=== PATIENT | female | born 1995 | race Caucasian/White ===

== ENCOUNTER 2022-10-17 12:50 | Outpatient (CLI) | payer BC, SELFPAY ==
--- NOTE | 2022-10-17 13:00 | CRLHL7_ITS ---
For Patients: As a result of the Cures Act, medical imaging exams and procedure reports are released immediately into your electronic medical record. You may view this report before your referring provider. If you have questions, please contact your health care provider. INDICATION: First trimester scan, establish dates. COMPARISON: None. TECHNIQUE: Real-time hopkins-scale imaging of the pelvis was performed. FINDINGS: Sonographic imaging demonstrates a single living intrauterine gestation. The embryo demonstrates a regular cardiac rate measuring 120 beats per minute. The embryo`s crown-rump length measurement of 0.8 cm corresponds to a gestational age of 6 weeks 5 days with a sonographic due date of 06/07/2023. There is a normal-appearing yolk sac. There are no gross abnormalities noted within the embryo at this early state of development. The gestational sac has a normal appearance. There is a 1.1 x 1.0 x 1.0 cm inferior perigestational hemorrhage. The amount of fluid within the sac appears appropriate for gestational age. The cervix is closed. The myometrium appears normal. The ovaries are of normal size. Left para ovarian cyst measuring 1.6 x 1.0 x 1.0 cm. There are no suspicious fluid collections noted in the cul-de-sac. IMPRESSION: Single living intrauterine with sonographic gestational age 6 weeks 3 days and sonographic due date of 06/07/2023. Inferior subchorionic hemorrhage measuring 1.1 cm. Dictated by Evin Feldman MD @ 10/18/2022 9:55:40 AM (Electronically Signed)
== END 2022-10-17 12:51 | disposition home or self-care (01) ==
PROVIDERS: Visit Provider Registered Nurse
DX: Z34.91 Encounter for supervision of normal pregnancy, unspecified, first trimester (principal); Z3A.01 Less than 8 weeks gestation of pregnancy
CPT/HCPCS: 0353U; 76817; 86703; 86803; 86850; 86900; 86901; 87340; 87491; 87591

== ENCOUNTER 2022-10-17 13:54 | Outpatient (CLI) | payer BC, SELFPAY ==
[2022-10-17 16:51] LABS: Chlamydia DNA Amplified* NOT DETECTED (No Detected); GC DNA Amplified* NOT DETECTED (No Detected)
== END 2022-10-17 13:55 | disposition home or self-care (01) ==
PROVIDERS: Visit Provider Registered Nurse
DX: Z34.91 Encounter for supervision of normal pregnancy, unspecified, first trimester (principal)
CPT/HCPCS: 0353U; 86592; 86703; 86762; 86787; 86803; 86850; 86900; 86901; 87086; 87340

== ENCOUNTER 2023-01-18 12:08 | Outpatient (CLI) | payer BC, SELFPAY ==
--- NOTE | 2023-01-18 12:15 | CRLHL7_ITS ---
For Patients: As a result of the Century Cures Act, medical imaging exams and procedure reports are released immediately into your electronic medical record. You may view this report before your referring provider. If you have questions, please contact your health care provider. INDICATION: Evaluate anatomy. COMPARISON: 10/17/2022 TECHNIQUE: Real time hopkins scale imaging of the fetus was performed as well as color Doppler analysis of the umbilical vessels. FINDINGS: Sonographic imaging demonstrates a single living intrauterine gestation. Fetus demonstrates a regular cardiac rate of 152 beats per minute. Fetus has a variable position. The placenta lies posteriorly without evidence of placenta previa. The edge of the placenta is located 3.5 cm from the internal cervical os. Amniotic fluid volume appears normal. Single deepest vertical pocket: 3.4 cm. The cervix is closed and measures 4.2 cm in length. The composite ultrasound gestational age is calculated at 20 weeks 3 days with an estimated sonographic due date of 06/04/2023. The estimated weight is 344 grams which lies at the 62nd %. The following biometric measurements were obtained: Biparietal diameter: 5.0 cm/21 weeks 0 days 85th% Head circumference: 18.4 cm/20 weeks 5 days 76th% Abdominal circumference: 14.7 cm/20 weeks 0 days 44th% Femur length: 3.3 cm/20 weeks 3 days 59th% The HC/AC ratio measures: 1.25 range (1.07-1.25) On anatomic survey, there is a normal appearance of the cerebral ventricles, cavum septi pellucidi, cisterna magna and cerebellum. The nose, lips, and facial profile appear normal. The cervical, thoracic and lumbar spine are well visualized and appear normal. There is a normal four-chamber heart view and the left and right ventricular outflow tracts appear normal. The diaphragm and stomach appear normal. The kidneys and bladder also appear normal. There is a normal three-vessel cord and cord insertion site. The four extremities appear normal. IMPRESSION: Normal OB ultrasound exam with concordance of clinical and sonographic dating. No intrinsic abnormalities noted on anatomic survey. Dictated by Evin Feldman MD @ 01/18/2023 1:46:18 PM (Electronically Signed)
== END 2023-01-18 12:09 | disposition home or self-care (01) ==
LOC: US 12:09
PROVIDERS: Visit Provider Obstetrics & Gynecology
DX: Z34.92 Encounter for supervision of normal pregnancy, unspecified, second trimester (principal); Z3A.20 20 weeks gestation of pregnancy
CPT/HCPCS: 76805

== ENCOUNTER 2023-03-15 16:15 | Outpatient (CLI) | payer BC, SELFPAY | END 2023-03-15 16:16 | disposition home or self-care (01) | LOC: NFLDREF 16:17 | PROVIDERS: Visit Provider Obstetrics & Gynecology | DX: Z34.93 Encounter for supervision of normal pregnancy, unspecified, third trimester (principal); Z3A.28 28 weeks gestation of pregnancy | CPT/HCPCS: 86592 ==

== ENCOUNTER 2023-03-22 07:59 | Outpatient (CLI) | payer BC, SELFPAY | END 2023-03-22 08:00 | disposition home or self-care (01) | LOC: NFLDREF 03-23 13:06 | PROVIDERS: Visit Provider Obstetrics & Gynecology | DX: R73.09 Other abnormal glucose (principal) | CPT/HCPCS: 82951; 82952 ==

== ENCOUNTER 2023-05-16 13:07 | Outpatient (CLI) | payer BC, SELFPAY ==
--- NOTE | 2023-05-16 13:15 | CRLHL7_ITS ---
For Patients: As a result of the Century Cures Act, medical imaging exams and procedure reports are released immediately into your electronic medical record. You may view this report before your referring provider. If you have questions, please contact your health care provider. INDICATION: Follow-up growth. COMPARISON: OB ultrasound 01/18/2023. TECHNIQUE: Ultrasound OB pelvis with real time hopkins scale imaging and color Doppler analysis. FINDINGS: Sonographic imaging demonstrates a single living intrauterine gestation. The fetus has a regular cardiac rate of 134 beats per minute. The fetus has a cephalic orientation. The placenta lies posteriorly without evidence of placenta previa. Amniotic fluid volume appears normal with single deepest pocket measuring 6.2 cm. The composite ultrasound gestational age is calculated at 38 weeks 2 days with an estimated sonographic due date of 05/28/2023. The estimated weight is 3449 grams which lies at the 88th percentile. The following biometric measurements were obtained: Biparietal diameter: 9.19 cm (37 weeks 2 days) (76th percentile) Head circumference: 34.75 cm (40 weeks 2 days) (93rd percentile) Abdominal circumference: 34.88 cm (38 weeks 5 days) (96th percentile) Femur length: 7.15 cm (36 weeks 4 days) (42nd percentile) The HC/AC ratio measures: 1.00 (range 0.89-1.06) IMPRESSION: 1. Single living intrauterine gestation in cephalic position with heart rate 134 beats per minute. 2. Ultrasound gestational age 38 weeks 2 days with sonographic due date 05/28/2023. The clinical gestational age is 36 weeks 6 days. 3. Estimated weight is 88th percentile. Dictated by Emmy Rader MD @ 05/16/2023 10:39:23 PM (Electronically Signed)
== END 2023-05-16 13:08 | disposition home or self-care (01) ==
LOC: US 13:07
PROVIDERS: Visit Provider Obstetrics & Gynecology
DX: Z34.93 Encounter for supervision of normal pregnancy, unspecified, third trimester (principal); Z3A.38 38 weeks gestation of pregnancy
CPT/HCPCS: 76816; 87081; 87653

== ENCOUNTER 2023-05-30 07:46 | Inpatient (IN) | payer BC, SELFPAY ==
[2023-05-30] VITALS (74 sets, daily range): BP systolic 89–136; BP diastolic 51–85; PULSE 72–119; RESP 16; TEMP 36.6–37.4; O2SAT 94–100; BMI 34.7
[2023-05-30] MEDS: OXYTOCIN 30 unit/500 ML in NS 30 UNIT/500 ML BAG IVPB (08:30)
[2023-05-30] MEDS: LACTATED RINGERS 1000 ML 1,000 ML 124 ML IV (08:44)
[2023-05-30 09:10] LABS: Basophils Absolute Auto 0.01 K/uL (0.00-0.30); Basophils Percent Auto 0.1 % (0.0-3.0); Eosinophils Absolute Auto 0.05 K/uL (0.00-0.50); Eosinophils Percent Auto 0.5 % (0.0-7.0); Hematocrit 32.8 % (33.0-51.0); Hemoglobin* 10.3 gm/dL (12.0-16.0); Immature Granulocytes Abs Auto 0.13 K/uL (0.00-0.30); Immature Granulocytes Pct Auto 1.4 %; Lymphocytes Absolute Auto 2.02 K/uL (0.90-2.90); Lymphocytes Percent Auto 21.8 % (20-44); Mean Corpuscular HGB Conc 31 gm/dL (32-36); Mean Corpuscular Hemoglobin 27 pg (26-34); Mean Corpuscular Volume 87 fL (80-100); Monocytes Percent Auto 5.9 % (0.0-11.0); Neutrophils Absolute Auto 6.52 K/uL (1.7-7.0); Neutrophils Percent Auto 70.3 % (42.0-72.0); Platelet Count* 216 K/uL (140-440); RDW Coefficient of Variation % 14.5 % (11.5-15.5); Red Blood Count 3.77 m/uL (4.00-5.20); White Blood Count* 9.28 K/uL (4.50-11.00)
[2023-05-30 09:12] LABS: Slide Review Reflex No
--- NOTE | 2023-05-30 13:21 | P.LDBA_ITS ---
Subjective History of Present Illness Time Seen by Provider: 08:00 Date Seen: 05/30/23 Narrative: Justa is being admitted to Labor and Delivery for elective induction of labor. She is a 28 year old at 39 weeks 0 days gestation. Her full history and ph ysical was dictated by Dr. Fallon on 05/16/2023. Please see this for details. Verbal consent obtained to perform AROM. Specific Issues/Plans : Mao. Daughter: Serjio. Baby: [place] Gender 1. H/O PP hemorrhage in 08/2021 which required 2 units PRBC, 1 unit FFP and 1u cryoprecipitate. 2. H/O generalized anxiety disorder. Not requiring medication. 3. H/O LGA infant: 8#12oz * Requested an US for EFW at 36 weeks 05/16/2023: Vtx, SDP 6.2cm. EFW: 88%. BPD 76%, HC 93%, AC 96%, FL 42%. * Would like an IOL at 39w0d - 39w6d: scheduled on 05/30/2023 at 39w0d. COVID: Not vaccinated. Recommended. TDAP: 04/02/23 RSV: 05/16/2023 GBS (-): 05/16/23. H&P by NDP on 05/16/23 OB - Problem Based A/P Additional Plan (1) Elective induction of labor planned: Start date: 05/30/23 Start time: 08:00 Status: Acute Plan: 1. Artificial rupture membranes took place a few minutes after 8:00 a.m. clear fluid 2. GBS negative 3. Patient is planning an epidural for labor analgesia. 4. Blood type: AB positive OB Exam Physical Exam Vital signs: Temp Pulse Resp BP Pulse Ox 98.7 F 102 H 16 113/77 97 05/30/23 12:55 05/30/23 12:55 05/30/23 12:55 05/30/23 12:55 05/30/23 09:02 Narrative: GENERAL APPEARANCE: Pleasant, , well-groomed woman in no acute distress. VITAL SIGNS: as noted in nursing notes HEAD: Normocephalic, atraumatic. THYROID: no masses, nodularity, tenderness or enlargement. LUNGS: Clear to auscultation bilaterally without wheezes, rales or rhonchi. HEART: Regular rate and rhythm with normal S1 and S2. No gallop, rub or murmur. ABDOMEN: Gravid. Soft, nontender, nondistended, with normal bowels sounds throughout. EFM: Baseline 120-130 beats per minute, accelerations: Present. Decelerations: Absent. Reactive. Category 1. TOCO: Rare contractions. PRESENTATION: Vertex by Paxton's maneuvers and sterile vaginal exam. SVE: 3.5 cm/ 70 %/ 0/soft/anterior. Vivas score: 10. AROM performed, clear fluid. EXTREMITIES: No cyanosis, clubbing, or edema. [+/-] varicosities. NEUROLOGIC: Normal gait and balance. Normal deep tendon reflexes at bilateral patella 2+/2, equal without clonus. PSYCHIATRIC: alert and oriented x3. Normal speech pattern, eye contact and affect. SKIN: Warm, dry, and well perfused. Good turgor. No lesions, nodules or rashes.
[2023-05-30] MEDS: ROPIVACAINE 0.2% 100 ml 100 ML 12 MG EPIDURAL (14:52)
[2023-05-30] MEDS: LIDOCAINE 2% (PF) 5 ML VIAL EPIDURAL (14:52)
[2023-05-30] MEDS: PHENYLEPHRINE 100 MCG/ML SYRINGE IVP ×2 (15:03→15:46)
[2023-05-30] MEDS: LACTATED RINGERS 1000 ML 1,000 ML 120 ML IV (15:43)
--- NOTE | 2023-05-30 15:45 | P.ANBPRC_ITS ---
[facility] Medical History atony of uterus with hemorrhage (09/06/21) ?O72.1 - Other immediate hemorrhage (ICD-10) Normal spontaneous vaginal delivery (09/06/21) ?O80 - Encounter for full-term uncomplicated delivery (ICD-10) Gastric ulcer with obstruction (02/07/10) ?K25.9 - Gastric ulcer, unspecified as acute or chronic, without hemorrhage or perforation (ICD-10) Gastric ulcer (02/07/10) ?K25.9 - Gastric ulcer, unspecified as acute or chronic, without hemorrhage or perforation (ICD-10) Encounter for blood transfusion (09/06/21) ?Z51.89 - Encounter for other specified aftercare (ICD-10) Social History What is your current living situation?: I presently have a place to live Problems where you live: no known problems In the past 12 months, utilities in danger of being shut off: no In past 12 months, lack of transportation kept you from medical appts, meetings, work, or getting things needed for daily living: no In the past 12 mos, have been you worried that your food would run out before you had money to buy more?: never true In the past 12 mos, the food you bought just didn't last and you didn't have money to buy more?: never true Smoking Status: Never smoker How often does anyone, including family, friends and others, physically hurt you : never How often does anyone, including family, friends and others, insult or talk down to you: never How often does anyone, including family, friends and others, threaten you with harm: never How often does anyone, including family, friends and others, scream or curse at you: never Little interest or pleasure in doing things: not at all Feeling down, depressed, or hopeless: not at all Meds Home Medications and Allergies Home Medications Medication Instructions Recorded Confirmed Type docosahexaenoic acid 200 mg mg PO 10/17/22 05/23/23 History capsule ( DHA) omeprazole 40 mg capsule,delayed 40 mg PO QDAY 04/02/23 05/30/23 History release Allergies Allergy/AdvReac Type Severity Reaction Status Date / Time No Known Allergies Allergy Unknown Verified 05/23/23 14:42 Results Labs Labs: Laboratory Results - last 24 hr 05/30/23 08:30 WBC 9.28 RBC 3.77 L Hgb 10.3 L Hct 32.8 L MCV 87 MCH 27 MCHC 31 L RDW Coeff of Casi 14.5 Plt Count 216 Neut % (Auto) 70.3 Lymph % (Auto) 21.8 [place] % (Auto) 5.9 Eos % (Auto) 0.5 Baso % (Auto) 0.1 Neut # (Auto) 6.52 Lymph # (Auto) 2.02 [place] # (Auto) 0.50 Eos # (Auto) 0.05 Baso # (Auto) 0.01 Abs Immat Gran (auto) 0.13 Imm/Tot Granulo (auto) 1.4 Blood Type AB Positive Antibody Screen NEGATIVE Vital Signs Vital Signs: Last Vital Signs Temp 98.7 F 05/30/23 14:35 Pulse 85 05/30/23 15:44 Resp 16 05/30/23 14:35 BP 103/57 L 05/30/23 15:44 Pulse Ox 94 05/30/23 15:27 Weight: 97.692 kg Height: 167.64 cm Anesthesia Procedures Epidural Insertion Patient Location: OB Start Time: 13:30 Stop Time: 14:00 Start Date: 05/30/23 Stop Date: 05/30/23 Reason for Block: procedure for pain Patient Position: sitting Performed By: Nura Mcdowell Preanesthetic Checklist: IV checked, risks and benefits discussed, monitors and equipment checked, pre-op evaluation, timeout performed and anesthesia consent Prep: chlorhexidine gluconate Monitoring: blood pressure monitoring, continuous pulse oximetry and heart rate Approach: midline Vertebral Space: lumbar (1-5) Epidural Technique: MARYCRUZ saline Needle Type: Tuohy needle Injection Technique: continuous catheter Needle gauge: 17 Needle Length (cm): 10 cm Needle Insertion Depth (cm): 7 Catheter Gauge: 19 Catheter Type: multi-orifice Catheter at skin depth (cm): 13 Test Dose Result: negative and lidocaine 1.5% with epinephrine 1 to 200,000
[2023-05-30] MEDS: ONDANSETRON 2 MG/ML inj 4 MG IV (16:01)
[2023-05-30] MEDS: TRANEXAMIC ACID 100 MG/ML INJ 1000 MG IV (18:38)
--- NOTE | 2023-05-30 20:05 | W.PM.VAGD1_ITS ---
Procedure Delivery date: 05/30/23 Procedure Done: Global Procedure Details: Megan is a 28 year-old G 2 P 100 1 now to admitted on 05/30/2023 at 7:30 a.m. at 30 Weeks, 0 Days gestation for elective induction of labor. AROM occurred at 8:06 a.m. on 05/30/2023 with clear fluid. Labor Analgesia: Epidural Pitocin: Yes Labor onset: 05/30/2023 at 2:58 p.m.. Complete: 05/30/2023 at 6:33 p.m.. Pushin05/30/2023 at 7:35 p.m.. heart tones during second stage were: Moderate variability with decelerations to the 80s with contractions with slow return to baseline when the vertex was . At 7:41 p.m. a viable male delivered in vertex direct OA presentation o andrade first-degree periurethral and first-degree perineal lacerations via normal spontaneous vaginal delivery. The infant was placed on maternal abdomen. Cord was clamped and cut after a 30 second delay. The infant was very limp to so the cord was clamped and cut and the moved to the warmer. Nose and mouth were bulb suctioned. Infant weight 8 lb 8 oz. Apgars: 5 at 1 minute, 8 at 5 minutes and 9 at 10 minutes, respectively. Shoulder dystocia: No. Nuchal cord: Yes loose nuchal cord that the infant delivered through. Placenta delivered spontaneously and complete at 7:47 p.m. with a 3 vessel cord. Laceration(s): First-degree perineal and first-degree periurethral. Repaired using 4-0 Vicryl suture interrupted sutures. Blood loss: 150 mL. Blood loss measurement type: Quantitative Sponge and needles counts are correct. Specimen: None Mother and infant were stable after delivery. 's name: Pending The patient is planning on breast feeding. Intrapartal Events: Labor Induction Delivery monitor: external FHT and external uterine Route of delivery: Laceration description: Perineal - 1st Degree Delivery repair: Vicryl Estimated blood loss (mL): 150 Anesthesia type: Epidural Disposition: floor
[2023-05-30] MEDS: miSOPROStoL 800 MCG/4 TABLET PR (20:38)
[2023-05-30] MEDS: ACETAMINOPHEN 500 MG TABLET 1000 MG PO (21:06)
[2023-05-30] MEDS: OXYTOCIN 30 unit/500 ML in NS 30 UNIT/500 ML BAG 125 UNIT IV (21:15)
[2023-05-30] MEDS: LACTATED RINGERS 1000 ML 1,000 ML 125 ML IV (21:17)
[2023-05-30] MEDS: IBUPROFEN 600 MG TABLET PO (23:12)
[2023-05-31 03:03] VITALS: BP 99/61; PULSE 87; RESP 16; TEMP 36.9; O2SAT 97
[2023-05-31] MEDS: ACETAMINOPHEN 500 MG TABLET 1000 MG PO ×3 (03:08→18:38)
[2023-05-31 06:24] VITALS: BP 110/68; PULSE 91; RESP 16; TEMP 36.8; O2SAT 98
[2023-05-31 07:33] LABS: Hemoglobin* 8.8 gm/dL (12.0-16.0)
--- NOTE | 2023-05-31 07:54 | PM.OBPNVD1 ---
OB - PN:Subj Subjective Date Seen: 05/31/23 Narrative: Justa is a 28 y.o. who was admitted to L & D for elective induction of labor. ?She had an uncomplicated NVD.?The patient feels well. ?The pain is well controlled with current medications. ?She has no new complaints. ?She is breast feeding and reports things are going well.? the patient has done well.? Vitals have been stable.? She has remained afebrile.? Has a good appetite, is tolerating a general diet. ?She is voiding without difficulty.? She is passing gas and has not had a bowel movement.? She is ambulating and denies any dizziness.? Has Small amount of rubra lochia. Hgb is 8.8, iron started every other day. OB - PN: Obj Exam Physical Exam: Vital signs: Temp Pulse Resp BP Pulse Ox O2 Del Method 98.3 F 91 16 110/68 98 Room Air 05/31/23 06:24 05/31/23 06:24 05/31/23 06:24 05/31/23 06:24 05/31/23 06:24 05/31/23 06:24 Narrative: GENERAL APPEARANCE:? normal affect, alert, no distress MOOD:? appropriate CHEST:? clear to auscultation HEART:? regular rate and rhythm ABDOMEN:? soft, non-tender the uterine fundus is at Umbilicus, Midline and is appropriate for the stage of recovery. PERINEUM:? mild edema of the perineum, there is a Perineal Laceration,?1st degree that is healing well. EXTREMITIES:? normal and no edema OB - PN: Obj Data Labs Labs: Laboratory Results - last 24 hr 05/30/23 08:30 WBC 9.28 RBC 3.77 L Hgb 10.3 L Hct 32.8 L MCV 87 MCH 27 MCHC 31 L RDW Coeff of Casi 14.5 Plt Count 216 Neut % (Auto) 70.3 Lymph % (Auto) 21.8 [place] % (Auto) 5.9 Eos % (Auto) 0.5 Baso % (Auto) 0.1 Neut # (Auto) 6.52 Lymph # (Auto) 2.02 [place] # (Auto) 0.50 Eos # (Auto) 0.05 Baso # (Auto) 0.01 Abs Immat Gran (auto) 0.13 Imm/Tot Granulo (auto) 1.4 Blood Type AB Positive Antibody Screen NEGATIVE Crossmatch (AHG) See Detail OB - PN: A/P Delivery Assessment and Plan (1) care and examination immediately after delivery: Status: Acute (2) (normal spontaneous vaginal delivery): Status: Acute (3) Lactating mother: Status: Acute Plan day: 1 Plan: routine care Comments: Routine care Lactating mother, may see if desired. Hgb 8.8, iron started every other day. Anticipate discharge tomorrow.
[2023-05-31] MEDS: IBUPROFEN 600 MG TABLET PO ×3 (08:09→22:03)
[2023-05-31 08:46] VITALS: BP 115/76; PULSE 88; RESP 16; TEMP 36.5; O2SAT 97
[2023-05-31] MEDS: FERROUS SULFATE 325 MG TABLET PO (11:48)
[2023-05-31 12:41] VITALS: BP 114/76; PULSE 86; RESP 16; TEMP 36.7; O2SAT 96
[2023-05-31 17:07] VITALS: BP 106/70; PULSE 102; RESP 16; TEMP 36.6; O2SAT 97
[2023-05-31 20:15] VITALS: BP 119/76; PULSE 85; RESP 16; TEMP 36.8
[2023-06-01 02:56] VITALS: BP 122/76; PULSE 84; RESP 16; TEMP 36.8; O2SAT 97
[2023-06-01] MEDS: IBUPROFEN 600 MG TABLET PO (05:13)
--- NOTE | 2023-06-01 08:32 | P.DS_ITS ---
DS: Providers Provider Date Seen: 06/01/23 Date of admission: 05/30/23 07:46 Primary care physician: Not a Local Provider Admitting Clinician: Karin Lr MD Attending Physician on discharge: Amy Ortega MD Date of Discharge: 06/01/23 DS: Diagnosis Discharge Diagnosis (1) (normal spontaneous vaginal delivery): Status: Acute (2) Lactating mother: Status: Acute (3) Anemia: Status: Acute Exam Narrative: Exam Narrative: General: Pleasant, no acute distress Heart: Regular rate and rhythm, no murmur or gallop Lungs: Clear to auscultation bilaterally Abdomen: Soft, nontender, fundus well below umbilicus Lower extremities: No edema or erythema Const: Vital Signs, click to edit/add: Vital Signs - 24 hr 05/31/23 08:46 05/31/23 12:41 05/31/23 17:07 Temperature 97.7 F 98.1 F 97.8 F Pulse Rate [Pulse Oximeter] 88 86 102 H Respiratory Rate 16 16 16 Blood Pressure [Le ft Arm] 115/76 114/76 106/70 Pulse Oximetry 97 96 97 Oxygen Delivery Me thod Room Air Room Air Room Air 05/31/23 20:15 06/01/23 02:56 Temperature 98.3 F 98.2 F Pulse Rate [Pulse Oximeter] 85 84 Respiratory Rate 16 16 Blood Pressure [Le ft Arm] 119/76 122/76 Pulse Oximetry 97 Oxygen Delivery Me thod Room Air Room Air OB - DS: Summary Hospital Course Hospital Course: Justa is a 28-year-old G2 now P 2-0-0-2 woman who is status post normal spontaneous vaginal delivery at 39 weeks gestation on 05/30/2023. Problem list: : Mao. Daughter: Serjio. Baby: [place] Gender 1. H/O PP hemorrhage in 08/2021 which required 2 units PRBC, 1 unit FFP and 1u cryoprecipitate. 2. H/O generalized anxiety disorder. Not requiring medication. 3. H/O LGA infant: 8#12oz Requested an US for EFW at 36 weeks 05/16/2023: Vtx, SDP 6.2cm. EFW: 88%. BPD 76%, HC 93%, AC 96%, FL 42%. Would like an IOL at 39w0d - 39w6d: scheduled on 05/30/2023 at 39w0d. She an uncomplicated spontaneous vaginal delivery. She gave to an 8 lb, 8 oz male infant. She had first-degree perineal and periurethral laceration. EBL was 150. Her course has been smooth. On day 1, she was found to have a hemoglobin of 8.8, and she was started on iron supplementation every other day. Today, on day 2, she is doing well. She is but is struggling with latch, and has seen the national sales consultant. She denies any heavy bleeding. Pain is controlled with ibuprofen. She is ambulating and urinating without difficulty. Infant Gender: Male Time Spent with Patient Time attestation: Total time spent providing and/or coordinating discharge services: Discharge Plan Discharge Disposition: Home, Self-Care Date of Admission: 05/30/23 07:46 Attending Provider on Discharge: Amy Ortega Primary Care Provider: Provider,Not a Local Condition: Stable Anticipated Discharge Date/Time: 06/01/23 08:45 Discharge Medications: New ferrous sulfate 325 mg (65 mg iron) Tablet 325 mg PO Q48H Qty: 28 0RF ibuprofen 600 mg Tablet 600 mg PO Q6H PRNQty: 60 0RF acetaminophen 500 mg Tablet 1,000 mg PO Q6H PRNQty: 0 0RF Lanolin (HPA) 100 % Cream 1 applic topical Q1H PRNQty: 0 0RF docusate sodium 100 mg Capsule 100 mg PO BID PRNQty: 0 0RF Continued DHA 200 mg capsule 200 mg PO DAILY omeprazole 40 mg capsule,delayed release(DR/EC) 40 mg PO QDAY sucralfate 1 gram tablet 1 g PO TID Qty: 60 1RF Discontinued ondansetron 4 mg tablet,disintegrating 4 mg PO Q6-8H PRN (Reason: nausea and vomiting) Qty: 30 2RF ferrous sulfate 27 mg iron tablet 27 mg PO QMWF Qty: 30 2RF Discharge Orders: Discharge Order (Routine); Ordered 06/01/23 Ordered By: Amy Ortega Patient Education: OB Vaginal/Breast Feeding Activity Detail: Nothing per vagina X 6 weeks Discharge Diet: Regular Follow Up Appointments: Provider,Not a Local [Primary Care Provider] - Amy Ortega MD [Staff Physician] - Forms: [employer] Info Instructions
[2023-06-01 09:05] VITALS: BP 119/72; PULSE 89; RESP 16; TEMP 36.9; O2SAT 98
[2023-06-01] MEDS: ACETAMINOPHEN 500 MG TABLET 1000 MG PO (09:11)
[2023-06-01] MEDS: DOCUSATE SODIUM 100 MG CAPSULE PO (09:12)
== END 2023-06-01 10:30 | disposition home or self-care (01) | DRG 560 ==
LOC: OB 07:48
PROVIDERS: Admitting Provider Orthopaedic Surgery; Visit Provider Obstetrics & Gynecology
DX: O70.0 First degree perineal laceration during delivery (principal); Z3A.39 39 weeks gestation of pregnancy; Z37.0 Single live birth; O90.81 Anemia of the puerperium
CPT/HCPCS: 01967; 36415; 85018; 85025; 86850; 86900; 86901; 86922; 99213; A9270; J2371; J2405; J2795; J7120

== ENCOUNTER 2023-06-21 21:07 | Emergency (ER) | payer BC, SELFPAY ==
[2023-06-21 21:31] VITALS: BP 125/80; PULSE 87; RESP 16; TEMP 36.6; O2SAT 99
--- NOTE | 2023-06-21 21:39 | ED_ITS ---
HPI - General Adult General Chief complaint: Unspecified Complaint, Adult Stated complaint: Clogged milk duct Time Seen by Provider: 06/21/23 21:31 History of Present Illness HPI narrative: Patient is a 28-year-old woman who is approximately 3 weeks who is pumping and breast-feeding. She is developed warmth and tenderness and swelling of the right breast superior and lateral to the areola LEs. She has had some exudative drainage from her nipple. She has had no fevers no chills no night sweats. No problems the left breast. This is her 2nd and she has had no difficulty with mastitis in the past. No other problems have been noted. Related Data Home Medications Medication Instructions Recorded Confirmed vits no.[id number]-ferrous fum 1 tab PO DAILY 06/13/23 06/21/23 28 mg iron-folic acid 800 mcg tablet (Classic ) Allergies Allergy/AdvReac Type Severity Reaction Status Date / Time No Known Allergies Allergy Unknown Verified 06/13/23 10:14 Review of Systems Status of ROS: Reports: 10 or more systems reviewed and unremarkable except as noted in History and below [facility] Medical History atony of uterus with hemorrhage (09/06/21) ?O72.1 - Other immediate hemorrhage (ICD-10) Normal spontaneous vaginal delivery (09/06/21) ?O80 - Encounter for full-term uncomplicated delivery (ICD-10) Gastric ulcer with obstruction (02/07/10) ?K25.9 - Gastric ulcer, unspecified as acute or chronic, without hemorrhage or perforation (ICD-10) Gastric ulcer (02/07/10) ?K25.9 - Gastric ulcer, unspecified as acute or chronic, without hemorrhage or perforation (ICD-10) Encounter for blood transfusion (09/06/21) ?Z51.89 - Encounter for other specified aftercare (ICD-10) Social History What is your current living situation?: I presently have a place to live Problems where you live: no known problems In the past 12 months, utilities in danger of being shut off: no In past 12 months, lack of transportation kept you from medical appts, meetings, work, or getting things needed for daily living: no In the past 12 mos, have been you worried that your food would run out before you had money to buy more?: never true In the past 12 mos, the food you bought just didn't last and you didn't have money to buy more?: never true Smoking Status: Never smoker Do you use any of these nicotine containing products: None Second hand tobacco smoke exposure: No How often do you have a drink containing alcohol: never How often do you have six or more drinks on one occasion: Never AUDIT-C Alcohol total score: 0 Non-prescribed substance use: denies use How often does anyone, including family, friends and others, physically hurt you : never How often does anyone, including family, friends and others, insult or talk down to you: never How often does anyone, including family, friends and others, threaten you with harm: never How often does anyone, including family, friends and others, scream or curse at you: never Little interest or pleasure in doing things: not at all Feeling down, depressed, or hopeless: not at all service: No Exam Narrative: Exam Narrative: EXAM GENERAL: Patient appears comfortable and well. EYES: No scleral icterus. LYMPH: No supraclavicular or cervical lymphadenopathy. SKIN: Visible skin seen during exam normal or with benign process only. EXT: No dependent lower extremity pedal edema. HEART: Regular rate and rhythm with no murmurs, rubs, or gallops. Breast: Right breast is enlarged and tender in the lateral aspect. No significant LUNGS: Clear to auscultation bilaterally with no crackles or wheezes. ABD: Soft, non tender, non distended. PSYCH: Good eye contact, speech is not pressured. Const: Vital Signs, click to edit/add: Vital Signs - 24 hr 06/21/23 21:31 Temperature 98 F Pulse Rate [Right Pulse Oximeter] 87 Respiratory Rate 16 Blood Pressure [Le ft Upper Arm] 125/80 Pulse Oximetry 99 Oxygen Delivery Me thod Room Air Course Course ED Course: Patient seen and examined. Vital Signs Vital signs: Initial Vital Signs Temperature 98 F 06/21/23 21:31 Temperature Source Temporal Artery Scan 06/21/23 21:31 Pulse Rate 87 06/21/23 21:31 Pulse Rhythm Regular 06/21/23 21:31 Respiratory Rate 16 06/21/23 21:31 Blood Pressure 125/80 06/21/23 21:31 Blood Pressure Mean 95 06/21/23 21:31 Blood Pressure Position Sitting 06/21/23 21:31 Pulse Oximetry 99 06/21/23 21:31 Oxygen Delivery Method Room Air 06/21/23 21:31 Vital Signs Temperature 98 F 06/21/23 21:31 Pulse Rate 87 06/21/23 21:31 Respiratory Rate 16 06/21/23 21:31 Blood Pressure 125/80 06/21/23 21:31 Pulse Oximetry 99 06/21/23 21:31 Oxygen Delivery Method Room Air 06/21/23 21:31 Temperature 98 F 06/21/23 21:31 Pulse Rate 87 06/21/23 21:31 Respiratory Rate 16 06/21/23 21:31 Blood Pressure 125/80 06/21/23 21:31 Pulse Oximetry 99 06/21/23 21:31 Oxygen Delivery Method Room Air 06/21/23 21:31 Medical Decision Making MDM Narrative Medical decision making narrative: Patient is a 28-year-old woman who presents with mastitis in the right breast while . After examining her in finding no other significant findings I did elect to treat her with warm compresses and Keflex. She will pump and dump her milk for the next 3-4 days and will follow-up with her primary physician as needed. Tylenol Motrin as needed. Plenty of rest plenty fluids. Discharge Plan Discharge Clinical Impression: Mastitis Condition: Stable Instructions: Mastitis (ED) Additional Instructions: Keflex Warm compresses Dispose of milk for the next 3-4 days Follow-up with your doctor next week if not improved. Activity Level: No Restrictions Discharge Diet: Regular Prescriptions: No Action Classic 28 mg iron- 800 mcg tablet PO DAILY ferrous sulfate 325 mg (65 mg iron) Tablet 325 mg PO Q48H Qty: 28 0RF Follow Up/Referrals: Provider,Not a Local [Primary Care Provider] - Stand Alone Forms: [employer] Info Instructions
== END 2023-06-21 21:48 | disposition home or self-care (01) ==
LOC: ED 21:46
PROVIDERS: Emergency Provider Internal Medicine; PCP Physician Assistant
DX: N61.0 Mastitis without abscess (principal)
CPT/HCPCS: 99283

== ENCOUNTER 2023-08-15 13:00 | Outpatient (RCR) | payer BC, SELFPAY | END 2023-11-18 12:58 | disposition home or self-care (01) | PROVIDERS: PCP Physician Assistant; Visit Provider Advanced Practice Midwife | DX: O99.891 Other specified diseases and conditions complicating pregnancy (principal); M79.18 Myalgia, other site; Z39.2 Encounter for routine postpartum follow-up; R10.2 Pelvic and perineal pain; R27.8 Other lack of coordination; Z51.89 Encounter for other specified aftercare | CPT/HCPCS: 97110; 97112; 97140; 97161; 97535 ==